=== PATIENT | female | born 1995 | race Hispanic/Latino ===

== ENCOUNTER 2017-07-08 18:55 | Emergency (ER) | payer OTHER ==
[2017-07-08] MEDS ORDERED: Ibuprofen 800 MG TAB ONE (20:18)
--- NOTE | 2017-07-08 20:32 | RAD ---
RIGHT WRIST THREE VIEWS: History: Wrist pain. FINDINGS: Carpals appear normally aligned. No fracture. No osseous abnormality seen. IMPRESSION: Unremarkable right wrist. POS: [facility]
== END 2017-07-08 20:45 | disposition home or self-care (01) ==
LOC: ERS 18:55
DX: M25.531 Pain in right wrist (principal); F32.9 Major depressive disorder, single episode, unspecified; F41.9 Anxiety disorder, unspecified; Z79.899 Other long term (current) drug therapy